=== PATIENT | male | born 1960 | race Caucasian/White ===

== ENCOUNTER 2023-03-18 14:40 | Outpatient (CLI) | payer BC | END 2023-03-18 14:41 | disposition home or self-care (01) | LOC: CSHRAD 14:40 | PROVIDERS: ATTEND Neurological Surgery | DX: M43.12 Spondylolisthesis, cervical region (principal); G99.2 Myelopathy in diseases classified elsewhere; M54.12 Radiculopathy, cervical region | CPT/HCPCS: 72040 ==